=== PATIENT | female | born 1995 | race Caucasian/White ===

== ENCOUNTER 2017-09-05 06:39 | Observation (INO) ==
[2017-09-06 18:24] VITALS: BP 112/62
== END 2017-09-06 19:02 | disposition home or self-care (01) ==
LOC: N.CC 06:39 → N.OR 06:39 → N.SDSINP 06:42 → N.CC 14:26
PROVIDERS: ADMIT Obstetrics & Gynecology; ATTEND Obstetrics & Gynecology